=== PATIENT | female | born 1955 | race American Indian/Alaskan Native ===

== ENCOUNTER 2018-11-30 13:05 | Emergency (ER) | payer SELFPAY ==
--- NOTE | 2018-11-30 13:11 | Emergency Department Report ---
Blank Doc - Documentation Documentation: This is a 63-year-old female that presents with diffuse abdominal pain with na suea. Denies vomiting. This initial assessment/diagnostic orders/clinical plan/treatment(s) is/are subject to change based on patient's health status, clinical progression and re- assessment by fellow clinical providers in the ED. Further treatment and workup at subsequent clinical providers discretion. Patient/guardians urged not to elope from the ED as their condition may be serious if not clinically assessed and managed. Initial orders include: 1- Patient sent to [facility] for further evaluation and treatment 2- labs 3 UA
[2018-11-30 13:46] LABS: Basophils % (Auto) 0.6 % (0.0-1.8); Eosinophils # (Auto) 0.1 K/mm3 (0.0-0.4); Eosinophils % (Auto) 2.5 % (0.0-4.3); Hematocrit 37.9 % (30.3-42.9); Hemoglobin 12.4 gm/dl (10.1-14.3); Lymphocytes # (Auto) 1.8 K/mm3 (1.2-5.4); Lymphocytes % (Auto) 43.8 % (13.4-35.0); Mean Corpuscular HGB Conc 33 % (30-34); Mean Corpuscular Volume 84 fl (79-97); Monocytes # (Auto) 0.4 K/mm3 (0.0-0.8); Monocytes % (Auto) 10.8 % (0.0-7.3); Platelet Count 174 K/mm3 (140-440); Red Blood Count 4.51 M/mm3 (3.65-5.03); Red Cell Distribution Width 18.6 % (13.2-15.2)
[2018-11-30 14:04] LABS: Alanine Aminotransferase 14 units/L (7-56); Albumin 3.9 g/dL (3.9-5); BUN/Creatinine Ratio 8; Blood Urea Nitrogen 5 mg/dL (7-17); Calcium 8.9 mg/dL (8.4-10.2); Hemolysis Index 10
[2018-11-30 14:06] LABS: Bilirubin,Direct < 0.2 mg/dL (0-0.2)
[2018-11-30 15:19] LABS: Bacteria,Urine 1+ /HPF (Negative); Bilirubin,Urine NEG (Negative); Blood,Urine NEG (Negative); Calcium Oxalate Crystals,Urine 1+; Color,Urine Amber (Yellow); Hyaline Casts,Urine 1 /LPF; Mucus,Urine 2+ /HPF
[2018-11-30 15:43] LABS: INR 0.96 (0.87-1.13)
[2018-11-30 15:55] VITALS: BP 181/99
--- NOTE | 2018-11-30 16:11 | Emergency Department Report ---
ED Abdominal Pain HPI - General Chief Complaint: Abdominal Pain Stated Complaint: CT SCAN Time Seen by Provider: 11/30/18 13:10 Source: patient Mode of arrival: Ambulatory Limitations: No Limitations - History of Present Illness Initial Comments: Pt is a 63 yo female who presents to the ED with c/o diffuse abd pain that began a couple of days ago. The patient states she has itchy skin, lesions on her skin, no appetite, and abd distension. The patient states she was sent by her PCP for a "CT abd/pelvis." She was recently diagnosed with Hep C last month. The patient denies any IV drug use. She is sexually active. She states she previously abused crack and cocaine but denies intravenous use of drugs. Severity scale (0 -10): 0 - Related Data Home Medications Medication Instructions Recorded Confirmed Last Taken Cetirizine HCl [ZyrTEC] 10 mg PO QDAY 10/03/14 10/03/14 Unknown Ibuprofen [Advil 100 MG tab] 200 mg PO Q6H PRN 10/03/14 10/03/14 Unknown Previous Rx's Medication Instructions Recorded Last Taken Type Carvedilol [Coreg] 6.25 mg PO BID #60 tablet 10/04/14 Unknown Rx Allergies Allergy/AdvReac Type Severity Reaction Status Date / Time codeine AdvReac Unknown Verified 11/23/13 12:04 ED Review of Systems ROS: Stated complaint: CT SCAN Other details as noted in HPI Comment: All other systems reviewed and negative ED Past Medical Hx - Past Medical History Hx Hypertension: Yes Hx Congestive Heart Failure: No Hx Diabetes: No Hx Asthma: No Hx COPD: No - Surgical History Additional Surgical History: Hysterectomy - Social History Smoking Status: Current Every Day Smoker Substance Use Type: Alcohol - Medications Home Medications: Home Medications Medication Instructions Recorded Confirmed Last Taken Type Cetirizine HCl [ZyrTEC] 10 mg PO QDAY 10/03/14 10/03/14 Unknown History Ibuprofen [Advil 100 MG tab] 200 mg PO Q6H PRN 10/03/14 10/03/14 Unknown History Carvedilol [Coreg] 6.25 mg PO BID #60 tablet 10/04/14 Unknown Rx ED Physical Exam - General Limitations: No Limitations General appearance: alert, in no apparent distress - Head Head exam: Present: atraumatic, normocephalic - Eye Eye exam: Present: normal appearance. Absent: scleral icterus - ENT ENT exam: Present: mucous membranes moist - Respiratory Respiratory exam: Present: normal lung sounds bilaterally. Absent: respiratory distress, wheezes, rales, rhonchi, stridor, chest wall tenderness, accessory muscle use, decreased breath sounds, prolonged expiratory - Cardiovascular Cardiovascular Exam: Present: regular rate, normal rhythm, normal heart sounds. Absent: systolic murmur, diastolic murmur, rubs, gallop - GI/Abdominal GI/Abdominal exam: Present: soft, distended (mild amount of abdominal distension ), normal bowel sounds. Absent: tenderness, guarding, rebound, rigid - Neurological Exam Neurological exam: Present: alert, oriented X3 - Psychiatric Psychiatric exam: Present: normal affect, normal mood - Skin Skin exam: Present: warm, dry, other (small purple papules to the abdomen and BLE, no obvious jaundice ) ED Course Vital Signs 11/30/18 11/30/18 13:08 15:29 Temperature 97.9 F 98.3 F Pulse Rate 94 H 85 Respiratory 19 17 Rate Blood Pressure 175/100 181/99 [Left] O2 Sat by Pulse 97 100 Oximetry ED Medical Decision Making - Lab Data Result diagrams: 11/30/18 13:33 11/30/18 13:33 Lab Results 11/30/18 11/30/18 11/30/18 Range/Units 13:33 13:33 14:50 WBC 4.0 L (4.5-11.0) K/mm3 RBC 4.51 (3.65-5.03) M/mm3 Hgb 12.4 (10.1-14.3) gm/dl Hct 37.9 (30.3-42.9) % MCV 84 (79-97) fl MCH 27 L (28-32) pg MCHC 33 (30-34) % RDW 18.6 H (13.2-15.2) % Plt Count 174 (140-440) K/mm3 Lymph % (Auto) 43.8 H (13.4-35.0) % Henry % (Auto) 10.8 H (0.0-7.3) % Eos % (Auto) 2.5 (0.0-4.3) % Baso % (Auto) 0.6 (0.0-1.8) % Lymph # 1.8 (1.2-5.4) K/mm3 Henry # 0.4 (0.0-0.8) K/mm3 Eos # 0.1 (0.0-0.4) K/mm3 Baso # 0.0 (0.0-0.1) K/mm3 Seg Neutrophils % 42.3 (40.0-70.0) % Seg Neutrophils # 1.7 L (1.8-7.7) K/mm3 PT (12.2-14.9) Sec. INR (0.87-1.13) APTT (24.2-36.6) Sec. Sodium 141 (137-145) mmol/L Potassium 3.6 (3.6-5.0) mmol/L Chloride 101.6 (98-107) mmol/L Carbon Dioxide 29 (22-30) mmol/L Anion Gap 14 mmol/L BUN 5 L (7-17) mg/dL Creatinine 0.6 L (0.7-1.2) mg/dL Estimated GFR > 60 ml/min BUN/Creatinine Ratio 8 % Glucose 106 H (65-100) mg/dL Calcium 8.9 (8.4-10.2) mg/dL Total Bilirubin 0.40 (0.1-1.2) mg/dL Direct Bilirubin < 0.2 (0-0.2) mg/dL Indirect Bilirubin 0.2 mg/dL AST 32 (5-40) units/L ALT 14 (7-56) units/L Alkaline Phosphatase 205 H (35-129) units/L Total Protein 7.9 (6.3-8.2) g/dL Albumin 3.9 (3.9-5) g/dL Albumin/Globulin Ratio 1.0 % Lipase 22 (13-60) units/L Urine Color Vilma (Yellow) Urine Turbidity Slightly-cloudy (Clear) Urine pH 6.0 (5.0-7.0) Ur Specific [place] 1.019 (1.003-1.030) Urine Protein 30 mg/dl (Negative) mg/dL Urine Glucose (UA) Neg (Negative) mg/dL Urine Ketones Neg (Negative) mg/dL Urine Blood Neg (Negative) Urine Nitrite Neg (Negative) Urine Bilirubin Neg (Negative) Urine Urobilinogen 4.0 (<2.0) mg/dL Ur Leukocyte Esterase Sm (Negative) Urine WBC (Auto) 7.0 H (0.0-6.0) /HPF Urine RBC (Auto) 20.0 (0.0-6.0) /HPF U Epithel Cells (Auto) 13.0 (0-13.0) /HPF Urine Bacteria (Auto) 1+ (Negative) /HPF Calcium Oxalate Crystal 1+ Hyaline Casts 1 /LPF Urine Mucus 2+ /HPF 04// Range/Units 15:21 WBC (4.5-11.0) K/mm3 RBC (3.65-5.03) M/mm3 Hgb (10.1-14.3) gm/dl Hct (30.3-42.9) % MCV (79-97) fl MCH (28-32) pg MCHC (30-34) % RDW (13.2-15.2) % Plt Count (140-440) K/mm3 Lymph % (Auto) (13.4-35.0) % Henry % (Auto) (0.0-7.3) % Eos % (Auto) (0.0-4.3) % Baso % (Auto) (0.0-1.8) % Lymph # (1.2-5.4) K/mm3 Henry # (0.0-0.8) K/mm3 Eos # (0.0-0.4) K/mm3 Baso # (0.0-0.1) K/mm3 Seg Neutrophils % (40.0-70.0) % Seg Neutrophils # (1.8-7.7) K/mm3 PT 13.4 (12.2-14.9) Sec. INR 0.96 (0.87-1.13) APTT 32.0 (24.2-36.6) Sec. Sodium (137-145) mmol/L Potassium (3.6-5.0) mmol/L Chloride (98-107) mmol/L Carbon Dioxide (22-30) mmol/L Anion Gap mmol/L BUN (7-17) mg/dL Creatinine (0.7-1.2) mg/dL Estimated GFR ml/min BUN/Creatinine Ratio % Glucose (65-100) mg/dL Calcium (8.4-10.2) mg/dL Total Bilirubin (0.1-1.2) mg/dL Direct Bilirubin (0-0.2) mg/dL Indirect Bilirubin mg/dL AST (5-40) units/L ALT (7-56) units/L Alkaline Phosphatase (35-129) units/L Total Protein (6.3-8.2) g/dL Albumin (3.9-5) g/dL Albumin/Globulin Ratio % Lipase (13-60) units/L Urine Color (Yellow) Urine Turbidity (Clear) Urine pH (5.0-7.0) Ur Specific [place] (1.003-1.030) Urine Protein (Negative) mg/dL Urine Glucose (UA) (Negative) mg/dL Urine Ketones (Negative) mg/dL Urine Blood (Negative) Urine Nitrite (Negative) Urine Bilirubin (Negative) Urine Urobilinogen (<2.0) mg/dL Ur Leukocyte Esterase (Negative) Urine WBC (Auto) (0.0-6.0) /HPF Urine RBC (Auto) (0.0-6.0) /HPF U Epithel Cells (Auto) (0-13.0) /HPF Urine Bacteria (Auto) (Negative) /HPF Calcium Oxalate Crystal Hyaline Casts /LPF Urine Mucus /HPF Vital Signs 11/30/18 11/30/18 13:08 15:29 Temperature 97.9 F 98.3 F Pulse Rate 94 H 85 Respiratory 19 17 Rate Blood Pressure 175/100 181/99 [Left] O2 Sat by Pulse 97 100 Oximetry - Radiology Data Radiology results: report reviewed PROCEDURE: CT ABDOMEN PELVIS W CON TECHNIQUE: CT examination of the abdomen after IV contrast CT examination of the pelvis after IV contrast HISTORY: abd pain, abd distension, recent dx of hep C COMPARISONS: None FINDINGS: Degenerative change in the spine. Slight rotatory lumbar curvature with mid left apex. No acute fracture. Small fat-containing hernia versus lipoma in the posterior flank bilaterally, slightly larger on the right. Lung base pulmonary emphysema. No acute lung base finding. Nonspecific diffusely decreased density of liver parenchyma may reflect fatty infiltration. No visualized focal liver lesion. Focal fatty sparing adjacent to the gallbladder fossa. Multiple small calcified gallstones in gallbladder lumen. Nonspecific slight prominence of the common bile duct caliber with 9.[address] evidence of ductal stone. Normal-appearing adrenals and spleen contain benign calcified granulomas. Nonspecific prominence of the pancreatic duct with 3.6 mm maximum diameter. No CT evidence of focal pancreatic lesion, pancreatitis, or pancreatic duct calculus. Intact normal caliber abdominal aorta with moderate calcified and noncalcified atherosclerotic plaque also extending into the aortic branches. Sagittal images suggest associated stenosis of the celiac artery origin. Normal caliber IVC. Normal-appearing kidneys and proximal ureters. Ureters otherwise obscured by adjacent structures. Intact anterior abdominal wall without hernia. No evidence of retroperitoneal adenopathy or me senteric mass. Normal-appearing stomach and duodenum. No small bowel distention in the abdomen and pelvis. Nonspecific scattered prominence of gas in the lower abdominal small bowel may reflect paralytic ileus. No mural thickening. No pelvic free fluid. Normal-appearing urinary bladder. Uterus is not visible which may be surgically absent. No definite adnexal abnormality. Prominent stool from cecum to rectum may reflect constipation. There is also prominent gas and caliber throughout the colon and rectum which may reflect a component of paralytic ileus. No focal sigmoid colon abnormality. No gross ascites or free air. Normal-appearing terminal ileum and retrocecal appendix. The appendix is adjacent to the inferior liver margin. IMPRESSION: Prominent stool, gas, and caliber from cecum to rectum may reflect constipation. Along with prominence of small bowel gas, there may be a component of paralytic ileus Suggestion of hepatic steatosis with fatty sparing adjacent to the gallbladder fossa Cholelithiasis. 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 The patient states she has itchy skin, lesions on her skin, no appetite, and abd distension. The patient states she was sent by her PCP for a "CT abd/pelvis." She was recently diagnosed with Hep C last month. The patient denies any IV drug use. She is sexually active. She states she previously abused crack and cocaine but denies intravenous use of drugs. CT shows Prominent stool, gas, and caliber from cecum to rectum may reflect constipation. Along with prominence of small bowel gas, there may be a component of paralytic ileus Suggestion of hepatic steatosis with fatty sparing adjacent to the gallbladder fossa Cholelithiasis. 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 Labs reveal elevated alk phos otherwise normal LFTs, normal coag studies. Pt left prior to CT abd/pelvis being read. pt needs to be evaluated by a chart snatcher/GI, general surgeon, and PCP in the next 2-3 days. UA shows mild UTI, pt left prior to receiving abx tx. Pt has elevated BP and needs further management and eval from PCP. Critical care attestation.: If time is entered above; I have spent that time in minutes in the direct care of this critically ill patient, excluding procedure time. ED Disposition Clinical Impression: Abdominal pain Qualifiers: Abdominal location: generalized Qualified Code(s): R10.84 - Generalized abdominal pain Hepatitis C Qualifiers: Viral hepatitis chronicity: unspecified Hepatic coma status: without hepatic coma Qualified Code(s): B19.20 - Unspecified viral hepatitis C without hepatic coma Cholelithiasis Qualifiers: Cholelithiasis location: gallbladder Cholecystitis presence: without cholecystitis Biliary obstruction: without biliary obstruction Qualified Code(s): K80.20 - Calculus of gallbladder without cholecystitis without obstruction UTI (urinary tract infection) Qualifiers: Urinary tract infection type: acute cystitis Hematuria presence: without hematuria Qualified Code(s): N30.00 - Acute cystitis without hematuria Disposition: ELOPED Is pt being admited?: No Does the pt Need Aspirin: No Condition: Stable Instructions: Viral Hepatitis C (ED), Abdominal Pain (ED), Urinary Tract Infection in Women (ED) Additional Instructions: Please follow up with your primary care doctor in the next 2-3 days. Please follow up with a GI doctor in the next 2-3 days. Please follow up with a general surgeon in the next 2-3 days. Return to the emergency room for any new or worsening symptoms Referrals: OLE HIDALGO MD [Primary Care Provider] - 2-3 Days [facility] [Provider Group] - 2-3 Days STEPHANIE ARRIETA MD [Staff Physician] - 2-3 Days Time of Disposition: 18:26 Print Language: SLOVAK
--- NOTE | 2018-11-30 18:22 | Cat Scan Report ---
PROCEDURE: CT ABDOMEN PELVIS W CON TECHNIQUE: CT examination of the abdomen after IV contrast CT examination of the pelvis after IV contrast HISTORY: abd pain, abd distension, recent dx of hep C COMPARISONS: None FINDINGS: Degenerative change in the spine. Slight rotatory lumbar curvature with mid left apex. No acute fract ure. Small fat-containing hernia versus lipoma in the posterior flank bilaterally, slightly larger on the right. Lung base pulmonary emphysema. No acute lung base finding. Nonspecific diffusely decreased density of liver parenchyma may reflect fatty infiltration. No visual ized focal liver lesion. Focal fatty sparing adjacent to the gallbladder fossa. Multiple small calcified gallstones in gallbladder lumen. Nonspecific slight prominence of the common bile duct caliber with 9.[address] evidence of ductal stone. Normal-appearing adrenals and spleen contain benign calcified granulomas. Nonspecific prominence of the pancreatic duct with 3.6 mm maximum diameter. No CT evidence of focal p ancreatic lesion, pancreatitis, or pancreatic duct calculus. Intact normal caliber abdominal aorta with moderate calcified and noncalcified atherosclerotic plaque also extending into the aortic branches. Sagittal images suggest associated stenosis of the celiac a rtery origin. Normal caliber IVC. Normal-appearing kidneys and proximal ureters. Ureters otherwise obscured by adjacent structures. Int act anterior abdominal wall without hernia. No evidence of retroperitoneal adenopathy or mesenteric m ass. Normal-appearing stomach and duodenum. No small bowel distention in the abdomen and pelvis. Nonspecific scattered prominence of gas in the lower abdominal small bowel may reflect paralytic ileu s. No mural thickening. No pelvic free fluid. Normal-appearing urinary bladder. Uterus is not visible which may be surgically absent. No definite adnexal abnormality. Prominent stool from cecum to rectum may reflect constipation. There is also prominent gas and calibe r throughout the colon and rectum which may reflect a component of paralytic ileus. No focal sigmoid colon abnormality. No gross ascites or free air. Normal-appearing terminal ileum and retrocecal appen cookie. The appendix is adjacent to the inferior liver margin. IMPRESSION: Prominent stool, gas, and caliber from cecum to rectum may reflect constipation. Along with prominenc e of small bowel gas, there may be a component of paralytic ileus Suggestion of hepatic steatosis with fatty sparing adjacent to the gallbladder fossa Cholelithiasis. 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
== END 2018-11-30 18:37 | disposition left against medical advice (07) ==
LOC: ED 13:05
DX: K80.20 Calculus of gallbladder without cholecystitis without obstruction (principal); B19.20 Unspecified viral hepatitis C without hepatic coma; N39.0 Urinary tract infection, site not specified; I10 Essential (primary) hypertension; F17.200 Nicotine dependence, unspecified, uncomplicated; Z88.5 Allergy status to narcotic agent; Z90.710 Acquired absence of both cervix and uterus
CPT/HCPCS: 36415; 74177; 80048; 80076; 81001; 83690; 85025; 85610; 85730; 99284; Q9967

== ENCOUNTER 2019-03-04 09:01 | Emergency (ER) | payer SELFPAY ==
[2019-03-04 09:11] VITALS: BP 189/114
--- NOTE | 2019-03-04 09:32 | Emergency Department Report ---
ED Recheck HPI - General Chief Complaint: Medical Clearance Stated Complaint: ITCHING (OUT OF MEDS) Time Seen by Provider: 03/04/19 09:19 Source: patient Mode of arrival: Ambulatory Limitations: No Limitations - History of Present Illness Initial Comments: This is a 63-year-old female nontoxic, well nourished in appearance, no acute signs of distress presents to the ED for medication refill. Patient stated she is out of her the lisionpril and hydroxyzine for hepatitis C itching. Patient denies any symptoms besides itching. Patient denies any fever, chills, nausea, vomiting, chest pain, shortness of breath, headache or stiff neck. Patient states allergies to codeine. Patient is unable to get in touch with her primary care doctor. MD Complaint: medication refill request -: days(s) Symptoms Since Prior Visit: no new symptoms Associated Symptoms: rash, other (itching). denies: fever, chills, chest pain, shortness of breath, malaise, nasuea, abdominal pain - Related Data Home Medications Medication Instructions Recorded Confirmed Last Taken Cetirizine HCl [ZyrTEC 10mg cap] 10 mg PO QDAY 10/03/14 10/03/14 Unknown Ibuprofen [Advil 100 MG tab] 200 mg PO Q6H PRN 10/03/14 10/03/14 Unknown Previous Rx's Medication Instructions Recorded Last Taken Type Carvedilol [Coreg] 6.25 mg PO BID #60 tablet 10/04/14 Unknown Rx Lisinopril [Zestril TAB] 20 mg PO DAILY #30 tablet 03/04/19 Unknown Rx hydrOXYzine HCL [Atarax] 25 mg PO Q8H PRN #12 tablet 03/04/19 Unknown Rx Allergies Allergy/AdvReac Type Severity Reaction Status Date / Time codeine AdvReac Unknown Verified 11/23/13 12:04 ED Review of Systems ROS: Stated complaint: ITCHING (OUT OF MEDS) Other details as noted in HPI Constitutional: denies: chills, fever Eyes: denies: eye pain, eye discharge, vision change ENT: denies: ear pain, throat pain Respiratory: denies: cough, shortness of breath, wheezing Cardiovascular: denies: chest pain, palpitations Endocrine: no symptoms reported Gastrointestinal: denies: abdominal pain, nausea, diarrhea Genitourinary: denies: urgency, dysuria, discharge Musculoskeletal: denies: back pain, joint swelling, arthralgia Skin: rash, other (itching). denies: lesions Neurological: denies: headache, weakness, paresthesias Psychiatric: denies: anxiety, depression Hematological/Lymphatic: denies: easy bleeding, easy bruising ED Past Medical Hx - Past Medical History Hx Hypertension: Yes Hx Congestive Heart Failure: No Hx Diabetes: No Hx Asthma: No Hx COPD: No - Surgical History Additional Surgical History: Hysterectomy - Social History Smoking Status: Never Smoker Substance Use Type: Alcohol - Medications Home Medications: Home Medications Medication Instructions Recorded Confirmed Last Taken Type Cetirizine HCl [ZyrTEC 10mg cap] 10 mg PO QDAY 10/03/14 10/03/14 Unknown History Ibuprofen [Advil 100 MG tab] 200 mg PO Q6H PRN 10/03/14 10/03/14 Unknown History Carvedilol [Coreg] 6.25 mg PO BID #60 tablet 10/04/14 Unknown Rx Lisinopril [Zestril TAB] 20 mg PO DAILY #30 tablet 03/04/19 Unknown Rx hydrOXYzine HCL [Atarax] 25 mg PO Q8H PRN #12 tablet 03/04/19 Unknown Rx ED Physical Exam - General Limitations: No Limitations General appearance: alert, in no apparent distress - Head Head exam: Present: atraumatic, normocephalic - Neck Neck exam: Present: normal inspection, full ROM. Absent: tenderness, meningismus, lymphadenopathy - Respiratory Respiratory exam: Present: normal lung sounds bilaterally. Absent: respiratory distress, wheezes, rales, rhonchi, stridor, chest wall tenderness, accessory muscle use, decreased breath sounds, prolonged expiratory - Cardiovascular Cardiovascular Exam: Present: regular rate, normal rhythm, normal heart sounds. Absent: systolic murmur, diastolic murmur, rubs, gallop - Extremities Exam Extremities exam: Present: normal inspection, full ROM - Back Exam Back exam: Present: normal inspection, full ROM - Neurological Exam Neurological exam: Present: alert, oriented X3, normal gait - Psychiatric Psychiatric exam: Present: normal affect, normal mood - Skin Skin exam: Present: warm, dry, intact, normal color, rash. Absent: cyanosis, diaphoretic, erythema, urticaria, vesicles, petechiae, pallor, abrasion, ecchymosis ED Course Vital Signs 03/04/19 09:06 Temperature 97.9 F Pulse Rate 102 H Respiratory 18 Rate Blood Pressure 189/114 O2 Sat by Pulse 99 Oximetry - Reevaluation(s) Reevaluation #1: 03/04/19 09:31 Patient is speaking in full sentences with no signs of distress noted. ED Recheck MDM - Medical Decision Making Patient does have her medication prescription for hydroxyzine. Patient does not have her medication bottle for the lisinopril because she does take 20 mg once daily. Patient is currently asymptomatic besides itching and rash. Patient was instructed to Follow-up with a primary care doctor in 3-5 days or if symptoms worsen and continue return to emergency room as soon as possible. At time of discharge, the patient does not seem toxic or ill in appearance. No acute signs of distress noted. Patient agrees to discharge treatment plan of care. No further questions noted by the patient. Critical care attestation.: If time is entered above; I have spent that time in minutes in the direct care of this critically ill patient, excluding procedure time. ED Disposition Clinical Impression: Medication refill Disposition: DC-01 TO HOME OR SELFCARE Is pt being admited?: No Does the pt Need Aspirin: No Condition: Stable Instructions: Hypertension (ED) Additional Instructions: Follow-up with a primary care doctor in 3-5 days or if symptoms worsen and continue return to emergency room as soon as possible. Keep a diary of blood pressure and present to primary care doctor. Prescriptions: hydrOXYzine HCL [Atarax] 25 mg PO Q8H PRN #12 tablet PRN Reason: Itching Lisinopril [Zestril TAB] 20 mg PO DAILY #30 tablet Referrals: PRIMARY MD DAVID [Referring] - 3-5 Days KRZYSZTOF GARCES MD [Staff Physician] - 3-5 Days [facility] [place] [facility] [place] - 3-5 Days [facility] [Outside] - 3-5 Days
== END 2019-03-04 09:53 | disposition home or self-care (01) ==
LOC: ED 09:01
DX: L29.9 Pruritus, unspecified (principal); I10 Essential (primary) hypertension; Z76.0 Encounter for issue of repeat prescription; Z88.5 Allergy status to narcotic agent

== ENCOUNTER 2019-11-25 10:37 | Inpatient (IN) | payer MEDICARE ==
[2019-11-25] MEDS ORDERED: oxyCODONE 5 MG TAB PO ONE (11:14)
--- NOTE | 2019-11-25 11:20 | Emergency Department Report ---
ED Abdominal Pain HPI - General Chief Complaint: Abdominal Pain Stated Complaint: DIARRHEA,VOMITING,ABD Time Seen by Provider: 11/25/19 11:08 Source: patient Mode of arrival: Ambulatory Limitations: No Limitations - History of Present Illness Initial Comments: Mrs. Alberto is a 64-year-old female with history of hepatitis C, hypertension who presents with vomiting diarrhea abdominal swelling for 6 months. She wants the "fluid off". She stopped seeing her GI doctor Dr. Wood several months ago. Her PCP is Dr. Dominguez. She has not had a paracentesis before. She denies fever. She also has diffuse itching in the lower extremities. She informed the nurse during triage that she had had suicidal thoughts in the past. She currently denies suicidal thoughts or plan to harm herself. Has had dark stools intermittently over several months. No history of anemia. No history of transfusion. MD Complaint: abdominal pain -: Gradual, month(s) (6) Location: diffuse (Mild discomfort due to abdominal swelling) Radiation: none Severity: moderate Severity scale (0 -10): 10 Quality: dull Consistency: constant Improves With: nothing Worsens With: movement Associated Symptoms: nausea, vomiting, diarrhea - Related Data Home Medications Medication Instructions Recorded Confirmed Last Taken PARoxetine [Paxil] 10 mg PO DAILY 11/25/19 11/25/19 Unknown Previous Rx's Medication Instructions Recorded Last Taken Type hydrOXYzine HCL [Atarax] 25 mg PO Q8H PRN #12 tablet 03/04/19 Unknown Rx lisinopriL [Zestril TAB] 20 mg PO DAILY #30 tablet 03/04/19 Unknown Rx oxyCODONE [roxiCODONE] 5 mg PO Q6HR PRN #10 tablet 11/25/19 Unknown Rx Allergies Allergy/AdvReac Type Severity Reaction Status Date / Time codeine AdvReac Unknown Verified 11/23/13 12:04 ED Review of Systems ROS: Stated complaint: DIARRHEA,VOMITING,ABD Other details as noted in HPI Comment: All other systems reviewed and negative Constitutional: denies: fever, malaise Respiratory: denies: cough, shortness of breath Gastrointestinal: abdominal pain, nausea, vomiting, diarrhea Skin: rash, lesions ED Past Medical Hx - Past Medical History Previous Medical History?: Yes Hx Hypertension: Yes Hx Congestive Heart Failure: No Hx Diabetes: No Hx Asthma: No Hx COPD: No Additional medical history: Hep C - Surgical History Additional Surgical History: Hysterectomy - Social History Smoking Status: Current Every Day Smoker Substance Use Type: None - Medications Home Medications: Home Medications Medication Instructions Recorded Confirmed Last Taken Type hydrOXYzine HCL [Atarax] 25 mg PO Q8H PRN #12 tablet 03/04/19 11/25/19 Unknown Rx lisinopriL [Zestril TAB] 20 mg PO DAILY #30 tablet 03/04/19 11/25/19 Unknown Rx PARoxetine [Paxil] 10 mg PO DAILY 11/25/19 11/25/19 Unknown History oxyCODONE [roxiCODONE] 5 mg PO Q6HR PRN #10 tablet 11/25/19 Unknown Rx ED Physical Exam - General Limitations: No Limitations General appearance: alert, in no apparent distress - Head Head exam: Present: atraumatic, normocephalic - Eye Eye exam: Present: normal appearance - ENT ENT exam: Present: mucous membranes moist - Neck Neck exam: Present: normal inspection, full ROM - Respiratory Respiratory exam: Present: normal lung sounds bilaterally. Absent: respiratory distress, wheezes, rales, rhonchi - Cardiovascular Cardiovascular Exam: Present: regular rate, normal rhythm, normal heart sounds. Absent: systolic murmur, diastolic murmur, rubs, gallop - GI/Abdominal GI/Abdominal exam: Present: soft, distended. Absent: tenderness, guarding, rebound - Rectal Rectal exam: Present: heme (+) stool, black stool, hemorrhoids - Extremities Exam Extremities exam: Present: other (Multiple bandages multiple excoriations) - Neurological Exam Neurological exam: Present: alert, oriented X3 - Psychiatric Psychiatric exam: Present: normal affect, normal mood - Skin Skin exam: Present: warm, dry, intact, normal color. Absent: rash ED Course Vital Signs 11/25/19 11/25/19 11/25/19 10:55 11:47 14:00 Temperature 98.5 F 98.2 F Pulse Rate 95 H 102 H Respiratory 18 14 14 Rate Blood Pressure Blood Pressure 148/87 139/86 [Left] O2 Sat by Pulse 100 Oximetry 11/25/19 18:33 Temperature 98.2 F Pulse Rate 101 H Respiratory 14 Rate Blood Pressure 119/92 Blood Pressure [Left] O2 Sat by Pulse 95 Oximetry ED Medical Decision Making - Lab Data Result diagrams: 11/25/19 11:37 11/25/19 11:37 - Radiology Data Radiology results: report reviewed CT abdomen pelvis: Extensive fatty infiltration of the liver, gallstones prominence of the pancreatic duct ascites edema of the ascending proximal transverse colon - Medical Decision Making Vomiting diarrhea appears to be mild. Patient appears well-hydrated. Ascites for the past 6 months: Patient will need outpatient GI evaluation and management. No indication of peritonitis. She does not have any fever or abdominal tenderness UGIB not originally suspected with presentation,severe anemia normal Platelet count, transfusion ordered, protonix ordered, unclear chronicity, likely subacute, on exam black stool Hemoccult positive I consulted Dr. Hdz furniture mover who recommended octreotide. Hospitalist service will admit patient Critical care attestation.: If time is entered above; I have spent that time in minutes in the direct care of this critically ill patient, excluding procedure time. ED Disposition Clinical Impression: Ascites, Vomiting and diarrhea, Upper GI bleed Disposition: OP ADMIT IP TO THIS HOSP Is pt being admited?: Yes Does the pt Need Aspirin: No Condition: Stable
[2019-11-25 12:00] LABS: Basophils % (Auto) 0.3 % (0.0-1.8); Eosinophils # (Auto) 0.1 K/mm3 (0.0-0.4); Eosinophils % (Auto) 1.1 % (0.0-4.3); Lymphocytes # (Auto) 2.1 K/mm3 (1.2-5.4); Lymphocytes % (Auto) 27.8 % (13.4-35.0); Mean Corpuscular HGB Conc 31 % (30-34); Mean Corpuscular Volume 73 fl (79-97); Monocytes # (Auto) 0.7 K/mm3 (0.0-0.8); Platelet Count 154 K/mm3 (140-440); Red Blood Count 2.39 M/mm3 (3.65-5.03)
[2019-11-25 12:03] LABS: Hematocrit 17.3 % (30.3-42.9); Hemoglobin 5.4 gm/dl (10.1-14.3); Red Cell Distribution Width 21.1 % (13.2-15.2)
[2019-11-25 12:11] LABS: Alanine Aminotransferase 17 units/L (7-56); Albumin 2.6 g/dL (3.9-5); BUN/Creatinine Ratio 8; Blood Urea Nitrogen 8 mg/dL (7-17); Calcium 7.9 mg/dL (8.4-10.2); Hemolysis Index 1
[2019-11-25] MEDS ORDERED: SODIUM CHLORIDE 0.9% 500 ML 500 ML IV ONE ×2 (14:21→22:43)
[2019-11-25 15:27] LABS: INR 1.19 (0.87-1.13)
[2019-11-25 15:31] LABS: Partial Thromboplastin Time 28.5 Sec. (24.2-36.6)
[2019-11-25] MEDS ORDERED: OCTREOTIDE 50 MCG/1 ML INJ IV ONE (16:30)
[2019-11-25] MEDS ORDERED: OCTREOTIDE 500 MCG in SODIUM CHLORIDE 0.9% 100 ML IV ONE (17:00)
--- NOTE | 2019-11-25 17:57 | Cat Scan Report ---
CT of the abdomen and pelvis with contrast INDICATION: Abdominal pain x2 days, prior hepatitis C COMPARISON: 12/01/2019 FINDINGS: Lung bases are clear. There is marked, extensive fatty infiltration of the liver. Gallstone s are seen without definite cholecystitis. No definite hepatic mass is seen. Spleen is of normal size and not enlarged. Slight prominence of the pancreatic duct is old and unchanged without definite anderson creatic mass. No common duct stone or common duct dilation. Adrenal glands and kidneys are unremarkab le. There is slight vascular calcification without aneurysm. There is a small amount of ascites in th e upper abdomen. CT of the pelvis shows no definite enteritis. There is edema involving the ascending and proximal tra nsverse colon but this also involves the stomach and I suspect this may be due to low albumin rather than inflammatory process. Uterus has been removed. No bowel obstruction is seen. No diverticulosis o r diverticulitis. Appendix is seen and is normal. IMPRESSION: Multiple findings as described without bowel obstruction or definite inflammatory process . Automated exposure control was utilized to diminish radiation dose. Signer Name: George Holguin MD Signed: 11/25/2019 5:53 PM Workstation Name: [id number]
[2019-11-25] MEDS ORDERED: SODIUM CHLORIDE 0.9% 500 ML 500 ML ONE (18:18)
[2019-11-25] MEDS: PANTOPRAZOLE 80 MG in SODIUM CHLORIDE 0.9% 100 ML IV SCH (22:26)
[2019-11-25] MEDS ORDERED: HYDROmorphone 1 MG/1 ML INJ IV PRN (22:37)
[2019-11-25] MEDS ORDERED: ONDANSETRON 4 MG/2 ML INJ IV PRN ×2 (22:37→22:41)
[2019-11-25] MEDS ORDERED: METOCLOPRAMIDE 10 MG/2 ML INJ IV PRN (22:37)
--- NOTE | 2019-11-25 22:37 | History and Physical Report ---
History of Present Illness Date of examination: 11/25/19 Date of admission: 11/25/19 17:39 Chief complaint: Melaanotic stools for 3 days History of present illness: 64-year-old female with history of hepatitis C, hypertension who presents with vomiting diarrhea abdominal swelling for 6 months. She wants the "fluid off". She stopped seeing her GI doctor Dr. Wood several months ago. Her PCP is Dr. Dominguez. She has not had a paracentesis before. She denies fever. She also has diffuse itching in the lower extremities. Has dark stools intermittently over several months. No history of anemia. No history of transfusion.Poor historian - Past Medical History Previous Medical History?: Yes Hypertension: Yes Additional medical history: Hep C Ascites - Surgical History Additional Surgical History: Hysterectomy - Social History Smoking Status: Current Every Day Smoker Substance Use Type: None - Medications Home Medications: Home Medications Medication Instructions Recorded Confirmed Last Taken Type hydrOXYzine HCL [Atarax] 25 mg PO Q8H PRN #12 tablet 03/04/19 11/25/19 Unknown Rx lisinopriL [Zestril TAB] 20 mg PO DAILY #30 tablet 03/04/19 11/25/19 Unknown Rx PARoxetine [Paxil] 10 mg PO DAILY 11/25/19 11/25/19 Unknown History oxyCODONE [roxiCODONE] 5 mg PO Q6HR PRN #10 tablet 11/25/19 Unknown Rx Review of Systems ROS: Constitutional weight loss present HEENT no sore throat no post nasal drip no diplopia Neck no neck stiffness no lymph gland enlargement Chest and lungs no shortness of breath cough or wheezing CVS no chest pain no diaphoresis no palpitations GI Melanotic stools Genitourinary system no dysuria no flank pain Musculoskeletal system no muscle pains no joint pains [employer] no syncope no seizures Skin no rash no itching Psychiatric no depression no homicidal or suicidal tendencies Hematologic no lymphedema or bruising Endocrine no polydipsia no polyuria no cold intolerance no heat intolerance constitutional no weight loss or weight gain no fever or chills PUI?: No Medications and Allergies Allergies Allergy/AdvReac Type Severity Reaction Status Date / Time codeine AdvReac Unknown Verified 11/23/13 12:04 Home Medications Medication Instructions Recorded Confirmed Last Taken Type hydrOXYzine HCL [Atarax] 25 mg PO Q8H PRN #12 tablet 03/04/19 11/25/19 Unknown Rx lisinopriL [Zestril TAB] 20 mg PO DAILY #30 tablet 03/04/19 11/25/19 Unknown Rx PARoxetine [Paxil] 10 mg PO DAILY 11/25/19 11/25/19 Unknown History oxyCODONE [roxiCODONE] 5 mg PO Q6HR PRN #10 tablet 11/25/19 Unknown Rx Active Meds: Active Medications Octreotide Acetate 500 mcg/ (Sodium Chloride) 101 mls @ 5.05 mls/hr IV TITR ONE; Protocol Stop: 11/26/19 12:59 Last Admin: 11/25/19 17:37 Dose: 25 mcg/hr, 5.05 mls/hr Documented by: Pantoprazole Sodium 80 mg/ (Sodium Chloride) 100 mls @ 10 mls/hr IV DIRECT CECIL Last Admin: 11/25/19 22:26 Dose: 8 mg/hr, 10 mls/hr Documented by: Exam - Constitutional Vitals: Temp Pulse Resp BP Pulse Ox 98.2 F 94 H 14 152/98 98 11/25/19 21:18 11/25/19 21:18 11/25/19 21:18 11/25/19 21:18 11/25/19 21:18 General appearance: Present: mild distress, well-nourished - EENT Eyes: Present: PERRL ENT: hearing intact, clear oral mucosa - Neck Neck: Present: supple, normal ROM - Respiratory Respiratory effort: normal Respiratory: bilateral: CTA - Cardiovascular Heart rate: 88 Rhythm: regular Heart Sounds: Present: S1 & S2. Absent: rub, click - Extremities Extremities: pulses symmetrical, No edema Peripheral Pulses: within normal limits - Abdominal General gastrointestinal: Present: soft, non-tender, distended, normal bowel sounds Female genitourinary: Present: normal - Rectal Rectal Exam: stool dark (OB positive) - Integumentary Integumentary: Present: clear, warm, dry - Musculoskeletal Musculoskeletal: gait normal, strength equal bilaterally - Psychiatric Psychiatric: appropriate mood/affect, intact judgment & insight - Neurologic Neurologic: CNII-XII intact, moves all extremities - Allied Health Allied health notes reviewed: nursing, case management Results - Labs CBC & Chem 7: 11/26/19 00:23 11/25/19 11:37 Labs: Laboratory Last Values WBC 7.4 K/mm3 (4.5-11.0) 11/25/19 11:37 RBC 2.39 M/mm3 (3.65-5.03) L 11/25/19 11:37 Hgb 5.4 gm/dl (10.1-14.3) L* 11/25/19 11:37 Hct 17.3 % (30.3-42.9) L* 11/25/19 11:37 MCV 73 fl (79-97) L 11/25/19 11:37 MCH 23 pg (28-32) L 11/25/19 11:37 MCHC 31 % (30-34) 11/25/19 11:37 RDW 21.1 % (13.2-15.2) H 11/25/19 11:37 Plt Count 154 K/mm3 (140-440) 11/25/19 11:37 Lymph % (Auto) 27.8 % (13.4-35.0) 11/25/19 11:37 [place] % (Auto) 9.0 % (0.0-7.3) H 11/25/19 11:37 Eos % (Auto) 1.1 % (0.0-4.3) 11/25/19 11:37 Baso % (Auto) 0.3 % (0.0-1.8) 11/25/19 11:37 Lymph # 2.1 K/mm3 (1.2-5.4) 11/25/19 11:37 [place] # 0.7 K/mm3 (0.0-0.8) 11/25/19 11:37 Eos # 0.1 K/mm3 (0.0-0.4) 11/25/19 11:37 Baso # 0.0 K/mm3 (0.0-0.1) 11/25/19 11:37 Seg Neutrophils % 61.8 % (40.0-70.0) 11/25/19 11:37 Seg Neutrophils # 4.6 K/mm3 (1.8-7.7) 11/25/19 11:37 PT 15.3 Sec. (12.2-14.9) H 11/25/19 14:47 INR 1.19 (0.87-1.13) H 11/25/19 14:47 APTT 28.5 Sec. (24.2-36.6) 11/25/19 14:47 Sodium 139 mmol/L (137-145) 11/25/19 11:37 Potassium 3.2 mmol/L (3.6-5.0) L 11/25/19 11:37 Chloride 104.4 mmol/L (98-107) 11/25/19 11:37 Carbon Dioxide 20 mmol/L (22-30) L 11/25/19 11:37 Anion Gap 18 mmol/L 11/25/19 11:37 BUN 8 mg/dL (7-17) 11/25/19 11:37 Creatinine 1.0 mg/dL (0.7-1.2) 11/25/19 11:37 Estimated GFR > 60 ml/min 11/25/19 11:37 BUN/Creatinine Ratio 8 % 11/25/19 11:37 Glucose 85 mg/dL (65-100) 11/25/19 11:37 Calcium 7.9 mg/dL (8.4-10.2) L 11/25/19 11:37 Total Bilirubin 0.20 mg/dL (0.1-1.2) 11/25/19 11:37 AST 32 units/L (5-40) 11/25/19 11:37 ALT 17 units/L (7-56) 11/25/19 11:37 Alkaline Phosphatase 112 units/L (35-129) 11/25/19 11:37 Total Protein 6.0 g/dL (6.3-8.2) L 11/25/19 11:37 Albumin 2.6 g/dL (3.9-5) L 11/25/19 11:37 Albumin/Globulin Ratio 0.8 % 11/25/19 11:37 Blood Type B POSITIVE 11/25/19 14:45 Antibody Screen Negative 11/25/19 14:45 Crossmatch See Detail 11/25/19 14:45 Short CBC 11/25/19 11/26/19 Range/Units 11:37 00:23 WBC 7.4 (4.5-11.0) K/mm3 Hgb 5.4 L* 7.4 L (10.1-14.3) gm/dl Hct 17.3 L* 24.1 L D (30.3-42.9) % Plt Count 154 (140-440) K/mm3 BMP 11/25/19 11:37 Sodium 139 Potassium 3.2 L Chloride 104.4 Carbon Dioxide 20 L BUN 8 Creatinine 1.0 Glucose 85 Calcium 7.9 L Liver Function 11/25/19 Range/Units 11:37 Total Bilirubin 0.20 (0.1-1.2) mg/dL AST 32 (5-40) units/L ALT 17 (7-56) units/L Alkaline Phosphatase 112 (35-129) units/L Albumin 2.6 L (3.9-5) g/dL - Imaging and Cardiology CT scan - abdomen: report reviewed Imaging and Cardiology: CT abdomen FINDINGS: Lung bases are clear. There is marked, extensive fatty infiltration of the liver. Gallstones are seen without definite cholecystitis. No definite hepatic mass is seen. Spleen is of normal size and not enlarged. Slight prominence of the pancreatic duct is old and unchanged without definite pancreatic mass. No common duct stone or common duct dilation. Adrenal glands and kidneys are unremarkable. There is slight vascular calcification without aneurysm. There is a small amount of ascites in the upper abdomen. CT of the pelvis shows no definite enteritis. There is edema involving the ascending and proximal transverse colon but this also involves the stomach and I suspect this may be due to low albumin rather than inflammatory process. Uterus has been removed. No bowel obstruction is seen. No diverticulosis or diverticulitis. Appendix is seen and is normal. IMPRESSION: Multiple findings as described without bowel obstruction or definite inflammatory process. Greenberg/IV: IV Catheter Type [Right Peripheral IV Antecubital] Assessment and Plan Advance Directives: Yes (FC) VTE prophylaxis?: Mechanical Plan of care discussed with patient/family: Yes - Patient Problems (1) Upper GI bleed Current Visit: Yes Status: Acute Plan to address problem: Being transfused 2 to 3 units EGD GI consult IV Protonix drip (2) Severe malnutrition Current Visit: Yes Status: Acute Plan to address problem: Causing edema of GI tract Dietitian consult (3) Symptomatic anemia Current Visit: Yes Status: Acute Plan to address problem: Transfuse 2 to 3 units PRBC (4) Ascites Current Visit: Yes Status: Chronic Qualifiers: Ascites type: other type Qualified Code(s): R18.8 - Other ascites Plan to address problem: Mild No need for paracentesis at this point Severe Hypoalbunimia (5) HTN (hypertension) Current Visit: No Status: Chronic Qualifiers: Hypertension type: essential hypertension Qualified Code(s): I10 - Essential (primary) hypertension Plan to address problem: Catapress patch low dose (6) Tobacco abuse Current Visit: No Status: Chronic Plan to address problem: Counselled Nicoderm patch (7) DVT prophylaxis Current Visit: No Status: Chronic Plan to address problem: SCD's and GI prophylaxis
[2019-11-25] MEDS ORDERED: ACETAMINOPHEN 325 MG TAB PO PRN (22:41)
[2019-11-25] MEDS ORDERED: PROMETHAZINE 25 MG RECT SUPP PR PRN (22:41)
[2019-11-25] MEDS ORDERED: SODIUM CHLORIDE 0.9% 1000 ML 1,000 ML IV SCH (22:45)
[2019-11-26 01:02] LABS: Hematocrit 24.1 % (30.3-42.9); Hemoglobin 7.4 gm/dl (10.1-14.3)
[2019-11-26] MEDS ORDERED: SODIUM CHLORIDE 0.9% 250ML 250 ML ONE (02:51)
[2019-11-26] MEDS: ACETAMINOPHEN 325 MG TAB PO PRN ×2 (03:12→18:40)
[2019-11-26] MEDS ORDERED: cloNIDine TTS 0.1 MG/24 HR PATCH TD SCH (07:00)
--- NOTE | 2019-11-26 08:53 | Progress Note ---
Assessment and Plan Assessment and plan: Patient is a 64-year-old woman with a history of hepatitis C and hypertension who presents with N/V/diarrhea, dark stools and abdominal swelling for 6 months. She wants the "fluid off". She stopped seeing her GI doctor Dr. Wood several months ago. Her PCP is Dr. Dominguez. She has not had a paracentesis before. Poor historian * CT abdomen/pelvis with contrast: FINDINGS: Lung bases are clear. There is marked, extensive fatty infiltration of the liver. Gallstones are seen without definite cholecystitis. No definite hepatic mass is seen. Spleen is of normal size and not enlarged. Slight prominence of the pancreatic duct is old and unchanged without definite pancreatic mass. No common duct stone or common duct dilation. Adrenal glands and kidneys are unremarkable. There is slight vascular calcification without aneurysm. There is a small amount of ascites in the upper abdomen. CT of the pelvis shows no definite enteritis. There is edema involving the ascending and proximal transverse colon but this also involves the stomach and I suspect this may be due to low albumin rather than inflammatory process. Uterus has been removed. No bowel obstruction is seen. No diverticulosis or diverticulitis. Appendix is seen and is normal. IMPRESSION: Multiple findings as described without bowel obstruction or definite inflammatory process. (1) Upper GI bleed Current Visit: Yes Status: Acute Plan to address problem: transfused 2 to 3 units EGD? needed GI consulted treated with IV Protonix drip (2) Severe malnutrition Current Visit: Yes Status: Acute Plan to address problem: Causing edema of GI tract Dietitian consult (3) Symptomatic anemia Current Visit: Yes Status: Acute Plan to address problem: Transfuse 2 to 3 units PRBC (4) Ascites Current Visit: Yes Status: Chronic Qualifiers: Ascites type: other type Qualified Code(s): R18.8 - Other ascites Plan to address problem: Mild No need for paracentesis at this point Severe Hypoalbunimia (5) HTN (hypertension) Current Visit: No Status: Chronic Qualifiers: Hypertension type: essential hypertension Qualified Code(s): I10 - Essential (primary) hypertension Plan to address problem: Catapress patch low dose (6) Tobacco abuse Current Visit: No Status: Chronic Plan to address problem: Counselled Nicoderm patch (7) DVT prophylaxis Current Visit: No Status: Chronic Plan to address problem: SCD's and GI prophylaxis 11/26/19: Admitted yesterday due to melanotic stools with hemoglobin of 5.4, s/p 2 units of PRBC now 7.4, await GI evaluation, order serial h/h. looking back at old records/discharge summary by Dr. Carl Ansari, shows she is Allergic to lisinopril due to cough, so I added as a drug allergy. Her main concern is itching and diffuse generalized, multiple coin like severely prutitic plaques bilateral legs, back; will treat with benadryl; continue NPO until sees GI History Interval history: Patient was seen and examined. Follow-up on current diagnosis of UGIB. Overnight uneventful as no events directly reported to me. Patient denies any chest pain, shortness breath, severe headaches. Imaging, nursing note, chart, labs and old chart reviewed. Discussed with patient. PUI?: No Hospitalist Physical - Physical exam Narrative exam: Gen: thin frial, NAD, Awake, Alert, Orientated HEENT: NCAT, EOMI, PERRL, OP Clear Neck: supple, no adenopathy, no thyromegaly, no JVD CVS/Heart: RRR, normal S1S2, pulses present bilaterally Chest/Lungs: CTA B, Symmetrical chest expansion, good air entry bilaterally GI/Abdomen: soft, NT mild+D, good bowel sounds, no guarding or rebound /Bladder: no suprapubic tenderness, no CVA or paraspinal tenderness Extermity/Skin: no c/c/e, coin like lesion bilateral legs MSK: FROM x 4 Neuro: CN 2-12 grossly intact, no new focal deficits Psych: calm - Constitutional Vitals: Temp Pulse Resp BP Pulse Ox 97.6 F 85 16 153/91 98 11/26/19 05:30 11/26/19 05:30 11/26/19 05:30 11/26/19 05:30 11/26/19 05:30 General appearance: Present: well-nourished. Absent: mild distress Results - Labs CBC & Chem 7: 11/26/19 08:13 11/25/19 11:37 Labs: Laboratory Last Values WBC 7.4 K/mm3 (4.5-11.0) 11/25/19 11:37 RBC 2.39 M/mm3 (3.65-5.03) L 11/25/19 11:37 Hgb 7.4 gm/dl (10.1-14.3) L 11/26/19 00:23 Hct 24.1 % (30.3-42.9) L D 11/26/19 00:23 MCV 73 fl (79-97) L 11/25/19 11:37 MCH 23 pg (28-32) L 11/25/19 11:37 MCHC 31 % (30-34) 11/25/19 11:37 RDW 21.1 % (13.2-15.2) H 11/25/19 11:37 Plt Count 154 K/mm3 (140-440) 11/25/19 11:37 Lymph % (Auto) 27.8 % (13.4-35.0) 11/25/19 11:37 [place] % (Auto) 9.0 % (0.0-7.3) H 11/25/19 11:37 Eos % (Auto) 1.1 % (0.0-4.3) 11/25/19 11:37 Baso % (Auto) 0.3 % (0.0-1.8) 11/25/19 11:37 Lymph # 2.1 K/mm3 (1.2-5.4) 11/25/19 11:37 [place] # 0.7 K/mm3 (0.0-0.8) 11/25/19 11:37 Eos # 0.1 K/mm3 (0.0-0.4) 11/25/19 11:37 Baso # 0.0 K/mm3 (0.0-0.1) 11/25/19 11:37 Seg Neutrophils % 61.8 % (40.0-70.0) 11/25/19 11:37 Seg Neutrophils # 4.6 K/mm3 (1.8-7.7) 11/25/19 11:37 PT 15.3 Sec. (12.2-14.9) H 11/25/19 14:47 INR 1.19 (0.87-1.13) H 11/25/19 14:47 APTT 28.5 Sec. (24.2-36.6) 11/25/19 14:47 Sodium 139 mmol/L (137-145) 11/25/19 11:37 Potassium 3.2 mmol/L (3.6-5.0) L 11/25/19 11:37 Chloride 104.4 mmol/L (98-107) 11/25/19 11:37 Carbon Dioxide 20 mmol/L (22-30) L 11/25/19 11:37 Anion Gap 18 mmol/L 11/25/19 11:37 BUN 8 mg/dL (7-17) 11/25/19 11:37 Creatinine 1.0 mg/dL (0.7-1.2) 11/25/19 11:37 Estimated GFR > 60 ml/min 11/25/19 11:37 BUN/Creatinine Ratio 8 % 11/25/19 11:37 Glucose 85 mg/dL (65-100) 11/25/19 11:37 Calcium 7.9 mg/dL (8.4-10.2) L 11/25/19 11:37 Total Bilirubin 0.20 mg/dL (0.1-1.2) 11/25/19 11:37 AST 32 units/L (5-40) 11/25/19 11:37 ALT 17 units/L (7-56) 11/25/19 11:37 Alkaline Phosphatase 112 units/L (35-129) 11/25/19 11:37 Total Protein 6.0 g/dL (6.3-8.2) L 11/25/19 11:37 Albumin 2.6 g/dL (3.9-5) L 11/25/19 11:37 Albumin/Globulin Ratio 0.8 % 11/25/19 11:37 Blood Type B POSITIVE 11/25/19 14:45 Antibody Screen Negative 11/25/19 14:45 Crossmatch See Detail 11/25/19 14:45 Greenberg/IV: IV Catheter Type [Right Wrist] INT / Saline Lock IV Catheter Type [Right Peripheral IV Antecubital] Active Medications - Current Medications Current Medications: Generic Name Dose Route Start Last Admin Trade Name Freq PRN Reason Stop Dose Admin Acetaminophen 650 mg 11/25/19 22:37 11/26/19 03:12 Tylenol PO 650 mg Q4H PRN Administration Pain MILD(1-3)/Fever >100.5/[place] Clonidine HCl 0.1 mg 11/26/19 07:00 Catapres-Tts Patch TD Mo CECIL Hydromorphone HCl 0.25 mg 04/12/20 22:37 Dilaudid IV Q3H PRN Pain, Moderate (4-6) Octreotide Acetate 500 mcg/ 101 mls @ 5.05 mls/hr 11/25/19 17:00 11/25/19 17:37 Sodium Chloride IV 11/26/19 12:59 25 mcg/hr TITR ONE 5.05 mls/hr Administration Protocol 25 MCG/HR Pantoprazole Sodium 80 mg/ 100 mls @ 10 mls/hr 11/25/19 17:00 11/25/19 22:26 Sodium Chloride IV 8 mg/hr DIRECT CECIL 10 mls/hr Administration 8 MG/HR Sodium Chloride 1,000 mls @ 42 mls/hr 11/25/19 22:45 Nacl 0.9% 1000 Ml IV DIRECT CECIL Metoclopramide HCl 10 mg 11/25/19 22:37 Reglan IV Q6H PRN Nausea And Vomiting Nicotine 14 mg 11/26/19 10:00 Habitrol TD QDAY CECIL Ondansetron HCl 4 mg 11/25/19 22:37 Zofran IV Q8H PRN Nausea And Vomiting Promethazine HCl 25 mg 11/25/19 22:41 Phenergan AL Q6H PRN N/V IF NPO AND NO IV ACCESS Sodium Chloride 10 ml 11/25/19 23:00 11/25/19 23:34 Sodium Chloride Flush Syringe 10 Ml IV 10 ml BID CECIL Administration Sodium Chloride 10 ml 11/25/19 22:37 Sodium Chloride Flush Syringe 10 Ml IV PRN PRN LINE FLUSH
[2019-11-26 09:15] LABS: Eosinophils # (Auto) 0.1 K/mm3 (0.0-0.4); Monocytes # (Auto) 0.6 K/mm3 (0.0-0.8); Monocytes % (Auto) 9.2 % (0.0-7.3)
[2019-11-26] MEDS: NICOTINE 14 MG/24 HR PATCH TD SCH (09:44)
[2019-11-26 09:45] LABS: Basophils % (Auto) 0.2 % (0.0-1.8); Hematocrit 29.8 % (30.3-42.9); Hemoglobin 9.6 gm/dl (10.1-14.3); Lymphocytes # (Auto) 1.3 K/mm3 (1.2-5.4); Lymphocytes % (Auto) 18.4 % (13.4-35.0); Mean Corpuscular HGB Conc 32 % (30-34); Mean Corpuscular Volume 79 fl (79-97); Platelet Count 130 K/mm3 (140-440); Red Blood Count 3.76 M/mm3 (3.65-5.03)
[2019-11-26 09:50] LABS: Red Cell Distribution Width 20.3 % (13.2-15.2)
[2019-11-26] MEDS: PANTOPRAZOLE 80 MG in SODIUM CHLORIDE 0.9% 100 ML IV SCH (09:50)
[2019-11-26] MEDS ORDERED: diphenhydrAMINE 50 MG/ML VIAL IV PRN (10:30)
[2019-11-26] MEDS ORDERED: SODIUM CHLORIDE 0.9% 1000 ML 1,000 ML IV SCH (10:30)
[2019-11-26] MEDS ORDERED: WATER FOR IRRIG STERILE 1,000 ML BOTTLE ONE (10:48)
[2019-11-26] MEDS ORDERED: WATER FOR IRRIG STERILE 250 ML BOTTLE IR ONE (10:48)
[2019-11-26] MEDS ORDERED: SODIUM CHLORIDE 0.9% 1000 ML 1,000 ML ONE (10:48)
--- NOTE | 2019-11-26 11:13 | Anesthesia Consultation ---
Anesthesia Consult and Med Hx Date of service: 11/26/19 - Airway Anesthetic Teeth Evaluation: Edentulous ROM Head & Neck: Adequate Mental/Hyoid Distance: Adequate Mallampati Class: Class II Intubation Access Assessment: Probably Good - Pre-Operative Health Status ASA Pre-Surgery Classification: ASA3 Proposed Anesthetic Plan: MAC - Pulmonary Hx Smoking: Yes (1 pack/day x 40 years) Hx Asthma: No COPD: No Hx Pneumonia: No - Cardiovascular System Hx Hypertension: Yes - Gastrointestinal Hx Ulcer: Yes (GI bleed) - Endocrine Hx End Stage Renal Disease: No Hx Cirrhosis: Yes (with small ascitis) Hx Liver Disease: Yes (Hep C) - Hematic Hx Anemia: Yes - Other Systems Hx Substance Use: Yes (on pescription pain meds)
--- NOTE | 2019-11-26 11:14 | Anesthesia Day of Surgery ---
Anesthesia Day of Surgery - Day of Surgery Patient Examined: Yes Patient H&P Reviewed: Yes Patient is NPO: Yes
[2019-11-26 11:17] LABS: Alanine Aminotransferase 20 units/L (7-56); Albumin 2.6 g/dL (3.9-5); BUN/Creatinine Ratio 8; Blood Urea Nitrogen 7 mg/dL (7-17); Hemolysis Index 3
[2019-11-26] MEDS ORDERED: propofoL 200 MG/20 ML VIAL IV ONE (12:59)
[2019-11-26] MEDS ORDERED: LIDOCAINE MPF (2%) 20 MG/1 ML VIAL 5 ML ONE (13:00)
--- NOTE | 2019-11-26 13:44 | Post Operative Note ---
Pre-op diagnosis: gi bleed Post-op diagnosis: same Findings: EGD: hiatal hernia - possible EOE - 1 cm cratered white ulcer distal antrum w/o bleeding stigmata - moderate antral gastritis (bx's) - ulcer x 3 (5-8 mm) white based noted duodenal bulb - negative other Procedure: EGD w/ bx's Anesthesia: MAC Surgeon: MARIELA HILTON Estimated blood loss: none Pathology: list Specimen disposition: to lab Condition: stable Disposition: floor
--- NOTE | 2019-11-26 13:55 | Operative Report ---
PROCEDURE: Esophagogastroduodenoscopy with cold biopsy. INDICATIONS: 1. Anemia. 2. Gastrointestinal bleed. MEDICATIONS: Propofol per RN CARE MANAGER. COMPLICATIONS: None. DESCRIPTION OF PROCEDURE: The patient brought to procedure suite. The patient had the procedure discussed with her at length. All risks, complications, and benefits discussed after which the patient signed for the procedure performed. The patient was placed in left lateral decubitus position. Mouth block was placed in the patient's oral cavity. After adequate sedation medication as above, endoscope placed in the mouth and brought to level of the second portion of duodenum. Retroflexion view performed. The patient's vital signs remained stable throughout the procedure. FINDINGS: There was a medium hiatal hernia with a nonobstructing Schatzki's ring noted at GE junction at 37 cm from the gums. There was some ring-like appearance to the esophagus, raising possibility of eosinophilic esophagitis. No biopsies were taken of the esophagus. The esophagus otherwise appeared to be normal. There was a 1 cm cratered white based ulcer noted in the distal antrum close to the prepyloric area. There was moderate antral gastritis with a few scattered shallow erosions. Biopsies were taken of the antrum and sent to pathology. No stigmata of bleeding was noted in the stomach. Stomach otherwise appeared to be normal. There were three white base 5-8 mm ulcers noted in the duodenal bulb without bleeding stigmata. The duodenum otherwise appeared to be normal. Retroflexion view performed in the stomach showed no other pathology other than noted above. The patient tolerated the procedure well. No complications during the procedure. IMPRESSION: 1. Hiatal hernia. 2. Nonobstructing Schatzki's ring. 3. Possible eosinophilic esophagitis. 4. Larger ulcer in the distal duodenal bulb, which was cratered but no bleeding stigmata. 5. Gastritis with ulcerations in the antrum with biopsies performed. 6. Ulcers x 3 without bleeding stigmata in duodenal bulb. 7. Otherwise, normal EGD. RECOMMENDATIONS: 1. Follow up biopsy results. 2. If H. pylori positive, treat with PPI IV b.i.d. 3. Follow hematocrit and transfuse as needed. 4. Discontinue octreotide. 5. If H and H stable in a.m., okay to discharge from GI standpoint. JOB# [id number] CAB/NTS
[2019-11-26 16:07] LABS: Hematocrit 30.1 % (30.3-42.9); Hemoglobin 9.5 gm/dl (10.1-14.3)
--- NOTE | 2019-11-26 16:31 | Consultation ---
REFERRING PHYSICIAN: George Jon MD INDICATIONS: 1. Anemia. 2. Gastrointestinal bleed. HISTORY OF PRESENT ILLNESS: The patient is a 64-year-old female with history of hepatitis C, hypertension, presents for rectal bleeding. The patient reports that she has a GI doctor who she has not seen in recent months. She does have a history of hepatitis C. It is unclear if she has a history of cirrhosis. The patient reports she had dark stools intermittently, was noted to be anemic with heme-positive stool. She subsequently was admitted for that and GI consulted to aid in management. She denies any hematemesis. Denies any other specific GI problems or complaints. PAST MEDICAL HISTORY: 1. Hepatitis C. 2. Hypertension. 3. Status post hysterectomy. MEDICATIONS: Reviewed and updated in chart. ALLERGIES: No known drug allergies. SOCIAL HISTORY: Denies alcohol, tobacco or IV drug abuse. FAMILY HISTORY: Negative for colon cancer, IBD, or liver disease. REVIEW OF SYSTEMS: GENERAL: Reports some weakness. HEENT: No visual complaints or tinnitus. PULMONARY: Denies shortness of breath. CARDIOVASCULAR: ____ chest pain. GASTROINTESTINAL: Reports intermittent dark stools. All points of 13-point review of systems were otherwise negative. PHYSICAL EXAMINATION: VITAL SIGNS: Temperature of 97.7, pulse 96, respiratory rate 18, blood pressure 160/90. GENERAL: Fairly thin female, in no acute distress. HEENT: Pupils equal, round and reactive. PULMONARY: Clear to auscultation bilaterally. CARDIOVASCULAR: Regular rhythm. Normal S1, S2. ABDOMEN: Positive bowel sounds, soft. SKIN: No obvious rashes. LABORATORY DATA: Pertinent for white count of 6.9, hemoglobin and hematocrit of 6.9 and 29.8, platelet count of 130. Chem-7 within normal limits. LFTs within normal limits. CT scan of abdomen and pelvis with contrast performed on 11/25/2019 showed no acute process. ASSESSMENT AND PLAN: A 64-year-old female with a history of known liver disease, presents with reported dark stool and noted anemia. It should be noted the patient's initial hemoglobin was 5.4. She was noted to be heme positive. Concern for upper GI blood loss. PLAN: 1. Follow hematocrit and transfuse as needed. 2. PPI IV drip. 3. Octreotide drip. 4. Follow H and H and transfuse as needed. 5. EGD today. 6. Further recommendations and progress will be based on results of EGD. JOB# [id number] CAB/NTS
--- NOTE | 2019-11-26 17:12 | Post Anesthesia Evaluation ---
- Post Anesthesia Evaluation Patient Participated: Yes Airway Patent: Yes Stable Respiratory Function: Yes Nausea/Vomiting: No Temp > 96.8F: Yes Pain Manageable: Yes Adequeate Hydration: Yes Anesthesia Complications: No Block Receding Appropriately: Not Applicable Patient on Ventilator: No
[2019-11-26] MEDS: PANTOPRAZOLE 40 MG INJ IV SCH (21:41)
[2019-11-27 08:40] VITALS: BP 145/89
[2019-11-27] MEDS: PANTOPRAZOLE 40 MG INJ IV SCH (09:34)
[2019-11-27] MEDS: NICOTINE 14 MG/24 HR PATCH TD SCH (09:34)
[2019-11-27 10:25] LABS: Hematocrit 27.1 % (30.3-42.9); Hemoglobin 8.6 gm/dl (10.1-14.3)
--- NOTE | 2019-11-27 11:05 | Gastroenterology Progress Note ---
Assessment and Plan GI: pt presented w/ anemia w/ signs GI bleed, EGD w/ PUD - h/h stable overnight - PPI bid - diet as tolerated - ok to d/c from GI standpoint Subjective Date of service: 11/27/19 Interval history: - no signs bleeding overnight PUI?: No Objective - Constitutional Vitals: Temp Pulse Resp BP Pulse Ox 97.9 F 86 18 145/89 96 11/27/19 08:22 11/27/19 08:22 11/27/19 08:22 11/27/19 08:22 11/27/19 08:22 General appearance: no acute distress - EENT Eyes: PERRL - Respiratory Respiratory: bilateral: CTA - Cardiovascular Rhythm: regular Heart Sounds: Present: S1 & S2 - Gastrointestinal General gastrointestinal: Present: soft, non-tender, non-distended - Labs CBC & Chem 7: 11/27/19 09:49 11/26/19 08:13 Labs: Laboratory Results - last 24 hr 11/26/19 11/26/19 11/26/19 08:13 08:13 14:44 Hgb 9.5 L Hct 30.1 L Sodium 141 Potassium 3.5 L Chloride 108.1 H Carbon Dioxide 18 L Anion Gap 18 BUN 7 Creatinine 0.9 Estimated GFR > 60 BUN/Creatinine Ratio 8 Glucose 66 Hemoglobin A1c 5.3 Calcium 8.0 L Total Bilirubin 0.70 AST 26 ALT 20 Alkaline Phosphatase 117 Total Protein 6.1 L Albumin 2.6 L Albumin/Globulin Ratio 0.7 11/27/19 09:49 Hgb 8.6 L Hct 27.1 L Sodium Potassium Chloride Carbon Dioxide Anion Gap BUN Creatinine Estimated GFR BUN/Creatinine Ratio Glucose Hemoglobin A1c Calcium Total Bilirubin AST ALT Alkaline Phosphatase Total Protein Albumin Albumin/Globulin Ratio
--- NOTE | 2019-11-27 13:02 | Discharge Summary ---
Providers - Providers Date of Admission: 11/25/19 17:39 Date of discharge: 11/27/19 Attending physician: FRANSISCO NAVARRO 11/25/19 14:28 Consult to Physician [CONS] Stat Comment: Consulting Provider: MARIELA HILTON Physician Instructions: Reason For Exam: UGIB 11/26/19 06:35 Consult to Dietitian/Nutrition [CONS] Routine Physician Instructions: Reason For Exam: Severe malnutrition Reason for Consult: Malnutrition 11/26/19 09:51 Consult to Wound/ET Nurse [CONS] Routine Reason For Exam: wound eval Primary care physician: SENIOR RISK ANALYST Hospitalization Condition: Stable Hospital course: Patient is a 64-year-old woman with a history of hepatitis C, alcohol abuse and hypertension who presents with N/V/diarrhea, dark stools and abdominal swelling for 6 months. She stopped seeing her GI doctor Dr. Wood several months ago. Her PCP is Dr. Dominguez. CT abdomen and pelvis showed edema involving the ascending and proximal transverse colon but no definite sign for ascites or intestinal obstruction. Her hemoglobin on admission was 5.4 with potassium 3.2. She was transfused 2 packed packed RBC, GI is consulted. She was further evaluated by EGD. Findings: EGD: hiatal hernia - possible EOE - 1 cm cratered white ulcer distal antrum w/o bleeding stigmata - moderate antral gastritis (bx's) - ulcer x 3 (5-8 mm) white based noted duodenal bulb - negative other Patient was placed on PPI twice daily, monitored H&H. Patient also noted to have possible streptococcal skin infection with impetigo for which she was started on antibiotics. She was then discharged home in stable condition with further outpatient follow-up. She was counseled to stop drinking alcohol. Radiological data: CT abdomen/pelvis with contrast: FINDINGS: Lung bases are clear. There is marked, extensive fatty infiltration of the liver. Gallstones are seen without definite cholecystitis. No definite hepatic mass is seen. Spleen is of normal size and not enlarged. Slight prominence of the pancreatic duct is old and unchanged without definite pancreatic mass. No common duct stone or common duct dilation. Adrenal glands and kidneys are unremarkable. There is slight vascular calcification without aneurysm. There is a small amount of ascites in the upper abdomen. CT of the pelvis shows no definite enteritis. There is edema involving the ascending and proximal transverse colon but this also involves the stomach and I suspect this may be due to low albumin rather than inflammatory process. Uterus has been removed. No bowel obstruction is seen. No diverticulosis or diverticulitis. Appendix is seen and is normal. IMPRESSION: Multiple findings as described without bowel obstruction or definite inflammatory process. Discharge diagnosis: Upper GI bleed due to peptic ulcer disease Severe anemia due to peptic ulcer disease Moderate to severe protein calorie malnutrition Severe hypoalbuminemia, due to hepatic disease and malnutrition Ascites, ruled out Hypertension stable Tobacco abuse/alcohol abuse counseled for cessation Streptococcal skin infection/impetigo Physical exam: Gen: thin frial, NAD, Awake, Alert, Orientated , malnourished HEENT: NCAT, EOMI, PERRL, OP Clear Neck: supple, no adenopathy, no thyromegaly, no JVD CVS/Heart: RRR, normal S1S2, pulses present bilaterally Chest/Lungs: CTA B, Symmetrical chest expansion, good air entry bilaterally GI/Abdomen: soft, NT mild+D, good bowel sounds, no guarding or rebound /Bladder: no suprapubic tenderness, no CVA or paraspinal tenderness Extermity/Skin: no c/c/e, coin like lesion bilateral legs MSK: FROM x 4 Neuro: CN 2-12 grossly intact, no new focal deficits Psych: calm Disposition: DC-01 TO HOME OR SELFCARE Time spent for discharge: 34 minutes Core Measure Documentation - Palliative Care Palliative Care/ Comfort Measures: Not Applicable - Core Measures Any of the following diagnoses?: history only Exam - Constitutional Vitals: Temp Pulse Resp BP Pulse Ox 97.9 F 86 18 145/89 96 11/27/19 08:22 11/27/19 08:22 11/27/19 08:22 11/27/19 08:22 11/27/19 08:22 Plan Activity: advance as tolerated Weight Bearing Status: Weight Bear as Tolerated Diet: regular Follow up with: MARIELA HILTON MD [Staff Physician] - 3-5 Days Prescriptions: hydrOXYzine HCL [Atarax] 25 mg PO Q8H PRN #12 tablet PRN Reason: Itching Amoxicillin/K Clav Tab [Augmentin 875 mg] 1 tab PO Q12HR #14 tab cloNIDine-TTS PATCH [Catapres-Tts 0.1MG Patch] 0.1 mg TD Mo #7 patch Pantoprazole [Protonix] 40 mg PO BID #60 tablet oxyCODONE [roxiCODONE] 5 mg PO Q6HR PRN #10 tablet PRN Reason: Pain
[2019-11-27] MEDS ORDERED: PANTOPRAZOLE 40 MG TAB PO SCH (22:00)
== END 2019-11-27 14:55 | disposition home or self-care (01) | DRG 377 ==
LOC: ED 10:37 → 4A 17:39
PROVIDERS: ADMIT Internal Medicine; ATTEND Internal Medicine
PROC: 30233N1 Transfusion of Nonautologous Red Blood Cells into Peripheral Vein, Percutaneous Approach (ICD-10-PCS; principal; 2019-11-25)
PROC: 0DB68ZX Excision of Stomach, Via Natural or Artificial Opening Endoscopic, Diagnostic (ICD-10-PCS; 2019-11-26)
DX: K29.01 Acute gastritis with bleeding (principal); E43 Unspecified severe protein-calorie malnutrition; K26.0 Acute duodenal ulcer with hemorrhage; K44.9 Diaphragmatic hernia without obstruction or gangrene; D64.9 Anemia, unspecified; F17.210 Nicotine dependence, cigarettes, uncomplicated; I10 Essential (primary) hypertension; E88.09 Other disorders of plasma-protein metabolism, not elsewhere classified; L08.9 Local infection of the skin and subcutaneous tissue, unspecified; K76.9 Liver disease, unspecified; K80.80 Other cholelithiasis without obstruction; B95.5 Unspecified streptococcus as the cause of diseases classified elsewhere; Z71.6 Tobacco abuse counseling; Z88.5 Allergy status to narcotic agent; Z88.8 Allergy status to other drugs, medicaments and biological substances; Z90.710 Acquired absence of both cervix and uterus; Z68.22 Body mass index [BMI] 22.0-22.9, adult
CPT/HCPCS: 36415; 74177; 80053; 83036; 85014; 85018; 85025; 85610; 85730; 86850; 86900; 86901; 86920; 88305; 88342; 99406; G0378; C9113; J2354; J2704; J7030; J7040; J7050; P9016; Q9967

== ENCOUNTER 2020-07-13 13:50 | Emergency (ER) | payer MEDICARE ==
--- NOTE | 2020-07-13 14:21 | Event Note ---
ED Screening Note ED Screening Note: left flank and left lower back pain that began a few days ago states she also has a rash to her lower legs no n/v/d no fever no dysuria no dark or odor to urine PMHx Hep C, not on medications allergy: codeine This initial assessment/diagnostic orders/clinical plan/treatment(s) is/are subject to change based on patients health status, clinical progression and re- assessment by fellow clinical providers in the ED. Further treatment and workup at subsequent clinical providers discretion. Patient/guardian urged not to elope from the ED as their condition may be serious if not clinically assessed and managed. Initial orders include: labs, UA
[2020-07-13 14:57] LABS: Basophils % (Auto) 0.5 % (0.0-1.8); Eosinophils # (Auto) 0.1 K/mm3 (0.0-0.4); Eosinophils % (Auto) 1.2 % (0.0-4.3); Hematocrit 34.2 % (30.3-42.9); Hemoglobin 10.9 gm/dl (10.1-14.3); Lymphocytes # (Auto) 1.6 K/mm3 (1.2-5.4); Lymphocytes % (Auto) 29.2 % (13.4-35.0); Mean Corpuscular HGB Conc 32 % (30-34); Mean Corpuscular Volume 77 fl (79-97); Monocytes # (Auto) 0.6 K/mm3 (0.0-0.8); Monocytes % (Auto) 11.7 % (0.0-7.3); Platelet Count 156 K/mm3 (140-440); Red Blood Count 4.44 M/mm3 (3.65-5.03); Red Cell Distribution Width 19.9 % (13.2-15.2)
[2020-07-13 15:16] LABS: Alanine Aminotransferase 21 units/L (7-56); Albumin 3.9 g/dL (3.9-5); BUN/Creatinine Ratio 11; Blood Urea Nitrogen 8 mg/dL (7-17); Calcium 9.4 mg/dL (8.4-10.2); Hemolysis Index 11
[2020-07-13 16:04] LABS: Bilirubin,Urine NEG (Negative); Blood,Urine NEG (Negative); Color,Urine Yellow (Yellow); Mucus,Urine FEW /HPF
== END 2020-07-13 18:50 | disposition left against medical advice (07) ==
LOC: ED 13:50
DX: M54.5 Low back pain (principal); R21 Rash and other nonspecific skin eruption; Z53.21 Procedure and treatment not carried out due to patient leaving prior to being seen by health care provider
CPT/HCPCS: 36415; 80053; 81001; 85025

== ENCOUNTER 2020-07-14 06:33 | Emergency (ER) | payer MEDICARE ==
[2020-07-14 08:33] VITALS: BP 180/105
== END 2020-07-14 11:48 | disposition left against medical advice (07) ==
LOC: ED 06:33
DX: M79.605 Pain in left leg (principal); Z53.21 Procedure and treatment not carried out due to patient leaving prior to being seen by health care provider